=== PATIENT | female | born 1945 | race Caucasian/White ===

== ENCOUNTER → 2016-06-28 | Outpatient (CLI) | payer MEDICARE ==
--- NOTE | 2016-06-28 11:59 | DIAGNOSTIC IMAGING REPORT ---
PROCEDURE: MR LUMBAR SPINE W/O CONTRAST INDICATION: Low back pain with left radiculopathy, initial encounter TECHNIQUE: Noncontrast T1, T2, and STIR sagittal images. T1 and T2 axial images. COMPARISON: None. FINDINGS: Normal alignment without fracture or suspicious osseous lesion. L3 benign bony hemangioma. Moderate multilevel degenerative changes with mild L1-2 , L2-3, moderate L3-4 and mild L4-5 disc space narrowing. Normal conus. Paraspinal soft tissues are normal. Incidental note made of left renal cyst pill L1-2: Small right posterior disc herniation but no foraminal or spinal stenosis. L2-3: Minor disc bulging. No foraminal or spinal stenosis. L3-4: Large right foraminal/lateral disc protrusion with facet arthropathy resulting in moderate right and mild left foraminal stenosis. There is no spinal stenosis. L4-5: Mild right posterior disc bulge/spur complex and moderate facet arthropathy resulting in mild right and mild to moderate left foraminal stenosis. Mild spinal stenosis. L5-S1: Minor disc bulging. Severe facet arthropathy. No foraminal or spinal stenosis. IMPRESSION: 1. Moderate multilevel disc vertebral degenerative changes 2. Large L3-4 right foraminal/lateral disc bulge with moderate right and mild left foraminal stenosis 3. Mild L4-5 right posterior disc bulge resulting in mild right and mild to moderate left foraminal stenosis. There is also mild spinal stenosis jennifer
== END ==
LOC: MRI SRH 09:38
DX: M51.36 Other intervertebral disc degeneration, lumbar region (principal); M47.816 Spondylosis without myelopathy or radiculopathy, lumbar region